=== PATIENT | female | born 2000 | race Caucasian/White ===

== ENCOUNTER 2024-08-29 10:55 | Emergency (ER) | payer OTHER ==
[~2024-08-29] VITALS: Ht 162.6 cm; Wt 81.6 kg
[2024-08-29 11:55] VITALS: BP 118/67; PULSE 92; RESP 18; TEMP 98.1; O2SAT 98
[2024-08-29 12:04] LABS: COVID19 (SARS ANTIGEN RAPID) PRESUMPTIVE NEGATIVE (NEGATIVE); INFLUENZA TYPE A Negative For Type A (NEGATIVE); INFLUENZA TYPE B Negative For Type B (NEGATIVE)
[2024-08-29] MEDS ORDERED: AZIT250T9 PO (12:14)
--- NOTE | 2024-08-29 12:14 | ERN ---
ED Note History of Present Illness Stated Complaint: COUGH,CHILLS,DIZZY Chief Complaint: Cough Time Seen by MD: 10:59 Dictation: 24-year-old with no past medical history, female, cough cold congestion for the past 3-4 days currently on no medications no history of heart or lung problems, patient reports 8/10 general body aches and cough. No hemoptysis. Allergies: Coded Allergies: No Known Drug Allergies (Unverified Allergy, Unknown, 08/29/24) Home Meds Active Scripts Azithromycin (Azithromycin) 250 Mg Tablet, 1 TAB PO AD for 5 Days, #6 TAB 0 Refills 2 the first day followed by 1 for days 2-5 Prov:NEELA EDWARDS MD 08/29/24 Past Medical History Past Medical History: Migraines Surgical History: Appendectomy Surgical History Other: HYDROCEPHALUS : 1 Para: 1 Aborts: 0 Review of System Dictation Constitutional: Negative for fever,chills, and weight loss Eyes: Negative for injury, pain,redness, and discharge ENT: Negative for injury,pain or swelling Cardiovascular: Negative for chest pain, palpitations, and edema Respiratory: Per HPI Abdomen/GI: Negative for abdominal pain, nausea, vomiting, diarrhea, and constipation Back: Negative for injury and pain : Negative for injury, bleeding and discharge MS/Extremity: Negative for injury and deformity Skin: Negative for rash, and discoloration Neuro: Negative for headache, weakness, numbness, tingling, and seizure Psych: Negative for suicide ideation, homicidal ideation, and hallucinations Initial Vital Sign VS Vital Signs Date Time Temp Pulse Resp B/P (MAP) Pulse Ox O2 Delivery O2 Flow Rate FiO2 08/29/24 10:57 99.9 108 16 128/81 95 Room Air* 0 21 Physical Exam Dictation General: awake, alert, NAD Head/Face: Normocephalic, atraumatic Eyes: PERRL, EOMI, vision at baseline ENT: oral cavity clear, TMs clear, no signs of infection Neck: Trachea midline, supple, no nuchal rigidity Cardiovascular: RRR, normal S1/S2, No MRGs, no JVD Respiratory: CTAB, no respiratory distress, No rales or wheezes Abdomen: Soft, non-tender, non-distended, normal bowel sounds, no guarding or rebound. Skin: Warm, dry, normal turgor, no rash MS/Extremity: Pulses equal, no cyanosis, neurovascular intact, FROM Neuro: COAx4, GCS 15, strength 5/5, CN 2-12 intact, normal cerebellar exam, normal gait, Psych: Normal behavior, mood, and affect normal Results (Laboratory/Radiology) Laboratory/Radiology Laboratory Tests Test 08/29/24 11:04 Influenza Type A Antigen Negative For Type A Influenza Type B Antigen Negative For Type B SARS-CoV-2 Antigen (Rapid) PRESUMPTIVE NEGATIVE X-RAY Comment: X-ray was reviewed and interpreted by me independently, concern for mild left lower lobe infiltrate. ED Course ED Course Orders Procedure Category Date Status Time Covid19 (Sars Antigen LAB 08/29/24 Complete Rapid) 10:59 Influenza Type A & B, LAB 08/29/24 Complete Rapid 10:59 Chest 1vw RAD 08/29/24 Resulted 10:59 Ceftriaxone 1g Vial PHA 08/29/24 Complete (Rocephine 1g Inj) 12:30 Dexamethasone 4mg/Ml PHA 08/29/24 Complete 1ml Vial (Dexametha 12:30 Current Medications Medications (Trade) Dose Ordered Sig/Vamshi Route PRN Reason Start Time Stop Time Status Last Admin Dose Admin Ceftriaxone Sodium (ROCEphine 1G INJ) 1 gm ONCE ONCE IM 08/29/24 12:30 08/29/24 12:31 DC 08/29/24 12:34 Dexamethasone Sodium Phosphate (dexaMETHasone 4MG/ML 1ML VIAL) 10 mg ONCE ONCE IM 08/29/24 12:30 08/29/24 12:31 DC 08/29/24 12:34 Vital Signs Date Time Temp Pulse Resp B/P (MAP) Pulse Ox O2 Delivery O2 Flow Rate FiO2 08/29/24 11:55 98.1 92 18 118/67 98 Room Air* 0 21 08/29/24 10:57 99.9 108 16 128/81 98 Room Air 0 08/29/24 10:57 99.9 108 16 128/81 95 Room Air* 0 21 Medical Decision Making MDM MDM: Differential diagnosis: Rationale: Tests considered and ordered secondary to shared decision making include: Previous outside records reviewed: Old ER visits. Risk of complication and/or morbidity or mortality of patient management: None Medications-Per medication reconciliation Need for hospitalization: Patient does not meet criteria for hospitalization. Need for emergency major/minor surgery: No There are no social concerns with this patient. Prescription drug management Prescriptions will include symptomatic care Patient's prior external medical records from other ER visits were reviewed by me as indicated. Prior testing and results from previous visits were reviewed. Prior tests were taken into account with medical decision making and resource utilization, independent historian/historians were used to obtain complete medical history. I independently interpreted the test that were performed, results were reviewed by me and considered findings on radiology if ordered. Medical management and examination interpretation discussions were had by me with other qualified healthcare professionals as indicated for the patient's care. 24-year-old female with community acquired pneumonia, stable exam table workup prescriptions given. DX & DISP Disposition: Discharge Departure Impression: Primary Impression: CAP (community acquired pneumonia) Condition: Stable Scripts Azithromycin (Azithromycin) 250 Mg Tablet 1 TAB PO AD for 5 Days, #6 TAB 0 Refills 2 the first day followed by 1 for days 2-5 Prov: NEELA EDWARDS MD 08/29/24 Referrals: SELF,REFERRAL (PCP) NEELA EDWARDS MD Aug 29, 2024 12:14
[2024-08-29] MEDS: dexaMETHasone SOD PHOSPHATE 4 MG/ML 1ML VIAL IM ONE (12:34)
[2024-08-29] MEDS: cefTRIAXone 1G VIAL IM ONE (12:34)
--- NOTE | 2024-08-29 13:58 | HMCIMG ---
CHEST 1VW HISTORY: Fever COMPARISON: None FINDINGS: A frontal projection of the chest was obtained. Left lower lung pulmonary infiltrates are seen. The heart is borderline enlarged. No evidence of aortic calcification is seen. IMPRESSION: 1. Left lower lung pulmonary infiltrates are seen.
== END 2024-08-29 12:51 | disposition home or self-care (01) ==
LOC: EDH 10:55
DX: J18.9 Pneumonia, unspecified organism (principal); G43.909 Migraine, unspecified, not intractable, without status migrainosus; Z20.822 Contact with and (suspected) exposure to COVID-19; Z79.899 Other long term (current) drug therapy; Z90.49 Acquired absence of other specified parts of digestive tract
CPT/HCPCS: 99284; 71045; 87426; 87804 ×2; 96372 ×2; J1100; J0696